=== PATIENT | male | born 1980 | race Caucasian/White ===

== ENCOUNTER 2016-12-28 14:12 | Emergency (ER) | payer OTHER ==
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
[2016-12-28 13:47] LABS: URINE SOURCE CLEAN CATCH
[2016-12-28 13:49] LABS: URINE APPEARANCE CLEAR; URINE BILIRUBIN NEG (NEG); URINE BLOOD NEG (NEG); URINE COLOR YELLOW; URINE GLUCOSE NEG (NORM); URINE KETONE NEG (NEG); URINE LEUKOCYTE ESTERASE NEG (NEG); URINE NITRATE NEG (NEG); URINE PROTEIN TRACE (NEG); URINE UROBILINOGEN 0.2 MG/DL (NORM)
[2016-12-28 13:51] LABS: MICRO INDICATED? NO
[~2016-12-28 14:12] MED LIST: ALBUTEROL17 GM INH; ANTI-INFLAMMATORY; ANTIVERT PO; ATARAX PO; BENADRYL PO; DICLOFENAC PO; DOXYCYCLINE PO; FAMVIR500 MG PO; GRISEOFULVIN PO; IBUPROFEN PO; IBUPROFEN800 MG PO; LOTRIMIN 1% CR30 GM EXT; MEDROL4 MG/DOSE- PO; MOBIC PO; NAPROXEN PO; NIZORAL 2% CREA15 GM TOP; NO MEDICATIONS; PHENERGAN/CODEIN5 ML PO; PREDNISONE PO; SKELAXIN PO; TESSALON200 MG PO; TYLOX 5/500 CAP1 CAP PO; VOLTAREN50 MG PO; ZITHROMAX1 G/PKT PO
== END 2016-12-28 14:33 | disposition home or self-care (01) ==
LOC: SED 14:12
PROVIDERS: Nurse Practitioner
DX: S33.5XXA Sprain of ligaments of lumbar spine, initial encounter (principal); S13.4XXA Sprain of ligaments of cervical spine, initial encounter; S40.012A Contusion of left shoulder, initial encounter; J45.909 Unspecified asthma, uncomplicated; V49.40XA Driver injured in collision with unspecified motor vehicles in traffic accident, initial encounter; Y92.410 Unspecified street and highway as the place of occurrence of the external cause
CPT/HCPCS: 72040; 72072; 72100; 73000; 81003; 96372; 99284; J1885

== ENCOUNTER 2017-07-07 09:10 | Emergency (ER) | payer BC ==
[2017-07-07 10:00] LABS: URINE SOURCE CLEAN CATCH
[2017-07-07 10:01] LABS: BASOPHIL% 0.6 % (0-2.5); EOSINOPHIL# 0.4 X10e3 (0-0.7); EOSINOPHIL% 4.8 % (0.0-7.0); HEMATOCRIT 46.6 % (38.0-50.0); LYMPHOCYTE# 2.6 X10e3 (1.0-3.5); LYMPHOCYTE% 32.6 % (17.0-45.0); MEAN CELL VOLUME 82.7 FL (83-96); MEAN CORPUSCULAR HEMOGLOBIN 28.4 PG (28-34); MEAN CORPUSCULAR HGB CONC 34.3 g/dL (30-36); MEAN PLATELET VOLUME 7.7 FL (6.5-11.5); MONOCYTE# 0.7 X10e3 (0-1.0); MONOCYTE% 8.4 % (3.0-12.0); NEUTROPHIL# 4.3 X10e3 (1.5-7.1); NEUTROPHIL% 53.6 % (40-75); PLATELET COUNT 255 X10e3 (140-420); RED BLOOD COUNT 5.63 X10e (3.90-5.60); RED CELL DISTRIBUTION WIDTH 13.3 % (11.0-15.5); WHITE BLOOD COUNT 8.1 X10e3 (4.0-10.5)
[2017-07-07 10:02] LABS: DIFF IND NO
[2017-07-07 10:02] LABS: URINE APPEARANCE CLEAR; URINE BILIRUBIN NEG (NEG); URINE BLOOD NEG (NEG); URINE COLOR YELLOW; URINE GLUCOSE NEG (NORM); URINE KETONE NEG (NEG); URINE LEUKOCYTE ESTERASE NEG (NEG); URINE NITRATE NEG (NEG); URINE PH 5.5 (5-8); URINE UROBILINOGEN 0.2 MG/DL (NORM)
[2017-07-07 10:13] LABS: MICRO INDICATED? NO; URINE PROTEIN NEG (NEG)
[2017-07-07 10:23] LABS: ALBUMIN SERUM 4.2 g/dL (3.5-5.0); BILIRUBIN, DIRECT 0.1 mg/dL (0.0-0.2); BILIRUBIN,INDIRECT 0.4 mg/dL (0.0-0.9); BILIRUBIN,TOTAL 0.5 mg/dL (0.2-2.0); CALCIUM SERUM 8.9 mg/dL (8.4-10.2); CREATININE SERUM 1.4 mg/dL (0.6-1.4); GLOM FILT RATE Estimated 63.8 mL/min (>60); POTASSIUM 3.3 mmol/L (3.5-5.1); PROTEIN TOTAL SERUM 7.6 g/dL (6.0-8.3)
== END 2017-07-07 11:49 | disposition home or self-care (01) ==
LOC: SED 09:10
PROVIDERS: Emergency Medicine
DX: A08.4 Viral intestinal infection, unspecified (principal); Z87.891 Personal history of nicotine dependence
CPT/HCPCS: 36415; 80048; 80076; 81003; 82150; 83690; 85025; 96374; 96375; 99284; C9113; J1885; J2405